=== PATIENT | male | born 1975 | race Caucasian/White ===

== ENCOUNTER 2019-03-15 12:36 | Emergency (ER) | payer MEDICAID ==
[~2019-03-15] VITALS: Ht 172.7 cm; Wt 86.2 kg
[2019-03-15 12:55] VITALS: BP 167/97
--- NOTE | 2019-03-15 12:56 | NUR ---
ED Nurse Note: Patient walked in to ER from home due to bilateral ankles and wrists gout pain 10/10. Patient alert and oriented x4 and ambulatory with steady gait. calm and cooperative. skin clean and intact. no cardiac or pulmonary distress noted at this time.
[2019-03-15] MEDS ORDERED: Dexamethasone 4mg/ml vial IM ONE (13:00)
[2019-03-15] MEDS ORDERED: Ketorolac 30mg Inj IM ONE (13:00)
--- NOTE | 2019-03-15 13:00 | Emergency Room Report ---
History of Present Illness General Chief Complaint: Pain Source: Patient Present Illness HPI 43-year-old male with history of repeated gout attacks here complaining of over 1 week of bilateral ankle swelling and right wrist swelling due to gout attack. Patient is taking allopurinol daily and is under the care of his primary care his latest uric acid levels have been very high and patient has been taking colchicine added to medicine with minimal relief. Patient has a pending for specialist. Patient denies any fall or injury. Denies consumption of fluid with urine in it. Denies any alcohol intake. Denies history of diabetes, hyper pressure, chest pain, palpitation. Patient reports that his blood pressure goes up every time he is in pain. Patient is rating the pain 10 out of 10 with radiation denying tingling and numbness. Erythema and effusion of both ankles and right wrist noted. Allergies: Coded Allergies: SULFAMETHOXAZOLE (Verified Allergy, Unknown, 03/15/19) TRIMETHOPRIM (Verified Allergy, Unknown, 03/15/19) Patient History Past Medical History: see triage record Past Surgical History: unable to obtain Pertinent Family History: none Immunizations: UTD Reviewed Nursing Documentation: PMH: Agreed; PSxH: Agreed Review of Systems All Other Systems: negative except mentioned in HPI Physical Exam Vital Signs Date Time Temp Pulse Resp B/P (MAP) Pulse Ox O2 Delivery O2 Flow Rate FiO2 03/15/19 12:39 98.4 95 19 167/97 (120) 99 Room Air Sp02 EP Interpretation: reviewed, normal General Appearance: no apparent distress, alert, GCS 15, non-toxic Head: normocephalic, atraumatic Eyes: bilateral eye normal inspection, bilateral eye PERRL ENT: hearing grossly normal, normal pharynx, no angioedema, normal voice Neck: full range of motion, supple/symm/no masses Respiratory: chest non-tender, lungs clear, normal breath sounds, speaking full sentences Cardiovascular #1: regular rate, rhythm, no edema, no murmur Cardiovascular #2: 2+ dorsalis pedis (R), 2+ dorsalis pedis (L) Gastrointestinal: normal bowel sounds, non tender, soft, non-distended, no guarding, no rebound Rectal: deferred Musculoskeletal: back normal, digits/nails normal, gait/station normal, normal range of motion, non-tender, no calf tenderness, swelling - Bilateral medial ankle, right wrist Neurologic: alert, oriented x3, responsive, motor strength/tone normal, sensory intact, speech normal Psychiatric: judgement/insight normal, memory normal, mood/affect normal, no suicidal/homicidal ideation Skin: no rash Lymphatic: no adenopathy Medical Decision Making PA Attestation All my diagnosis and treatment plans were reviewed ad discussed with my supervising physician Dr. Mark Diagnostic Impression: Primary Impression: Gout attack ER Course 43-year-old male with history of repeated gout attacks here complaining of over 1 week of bilateral ankle swelling and right wrist swelling due to gout attack. Patient is taking allopurinol daily and is under the care of his primary care his latest uric acid levels have been very high and patient has been taking colchicine added to medicine with minimal relief. Patient has a pending for specialist. Patient denies any fall or injury. Denies consumption of fluid with urine in it. Denies any alcohol intake. Denies history of diabetes, hyper pressure, chest pain, palpitation. Patient reports that his blood pressure goes up every time he is in pain. Patient is rating the pain 10 out of 10 with radiation denying tingling and numbness. Erythema and effusion of both ankles and right wrist noted. Ddx considered but are not limited to: ankle sprain, ankle strain, ankle fracture, ankle contusion, gout attack Vital signs: are WNL, pt. is afebrile H&PE are most consistent with: Gout attack ORDERS: Toradol, dexamethasone, prednisone ED INTERVENTIONS: Toradol and dexamethasone DISCHARGE: At this time pt. is stable for d/c to home. Will provide printed patient care instructions, and any necessary prescriptions. Care plan and follow up instructions have been discussed with the patient prior to discharge. Patient to follow-up with his primary care provider I advised him not to take anymore prednisone after this round and has patient has been taking in the past 3 weeks on and off. Continue taking indomethacin. No imaging is needed as patient has gout attack. Patient reports that he gets that every few weeks the same exact spots. Last Vital Signs Date Time Temp Pulse Resp B/P (MAP) Pulse Ox O2 Delivery O2 Flow Rate FiO2 03/15/19 12:55 98.4 75 19 167/97 99 Room Air Disposition: HOME, SELF-CARE Condition: Stable Scripts Prednisone* (PREDNISONE*) 50 Mg Tablet 50 MG ORAL DAILY for 5 Days, #5 TAB 0 Refills Prov: Lauri Moran 03/15/19 Patient Instructions: Gout, [id number] Additional Instructions: Take medication as directed follow-up with your primary care provider if worsening symptoms return to the emergency room Lauri Moran Mar 15, 2019 13:00
[2019-03-15] MEDS ORDERED: PREDNISONE50 MG ORAL (13:02)
--- NOTE | 2019-03-15 13:13 | NUR ---
ED Nurse Note: Pt cleared by health care Provider for discharge. DC instructions/prescription was given and explained to pt and verbalized understanding of teachings. All medical deviecs such as ID band removed. Pt is AAO x4, ambulatory and left with all personal belongings.
== END 2019-03-15 13:15 | disposition home or self-care (01) ==
LOC: EMR 13:00
DX: M10.9 Gout, unspecified (principal); Z88.2 Allergy status to sulfonamides; Z88.1 Allergy status to other antibiotic agents
CPT/HCPCS: 96372; J1100; J1885; Z7502; 99283